=== PATIENT | female | born 1995 | race African-American/Black ===

== ENCOUNTER 2018-01-08 22:56 | Emergency (ER) | payer OTHER ==
[~2018-01-08] VITALS: Ht 167.6 cm; Wt 59.0 kg
[~2018-01-08 22:56] MED LIST: TORADOL10 MG PO
== END 2018-01-09 09:18 | disposition home or self-care (01) ==
LOC: ER 22:56
DX: O20.0 Threatened abortion (principal); Z34.01 Encounter for supervision of normal first pregnancy, first trimester

== ENCOUNTER 2018-04-25 11:37 | Outpatient (CLI) | payer OTHER ==
[2018-04-25] MEDS ORDERED: PRENATAL 19 TA1 EAC1 PO (13:58)
== END 2018-04-26 13:30 | disposition home or self-care (01) ==
LOC: OBS/DEL 11:37
DX: O99.89 Other specified diseases and conditions complicating pregnancy, childbirth and the puerperium (principal); N13.1 Hydronephrosis with ureteral stricture, not elsewhere classified; O47.03 False labor before 37 completed weeks of gestation, third trimester

== ENCOUNTER 2018-06-23 06:47 | Inpatient (IN) | payer OTHER ==
[~2018-06-23] VITALS: Ht 167.6 cm; Wt 73.0 kg
[~2018-06-23 06:47] MED LIST changes: +PRENATAL 19 TA1 EAC1 PO
[2018-06-23] MEDS ORDERED: CEFADROXIL500 MG PO (13:47)
== END 2018-06-25 13:12 | DRG 807 ==
LOC: LDR 06:47 → OB/GYN 06-24 07:36
PROVIDERS: ADMIT Specialist
PROC: 10E0XZZ Delivery of Products of Conception, External Approach (ICD-10-PCS; principal; 2018-06-23)
PROC: 0HQ9XZZ Repair Perineum Skin, External Approach (ICD-10-PCS; 2018-06-23)
PROC: 3E033VJ Introduction of Other Hormone into Peripheral Vein, Percutaneous Approach (ICD-10-PCS; 2018-06-23)
PROC: 4A1HXCZ Monitoring of Products of Conception, Cardiac Rate, External Approach (ICD-10-PCS; 2018-06-23)
DX: O70.0 First degree perineal laceration during delivery (principal); Z37.0 Single live birth; Z3A.38 38 weeks gestation of pregnancy

== ENCOUNTER 2022-09-04 15:57 | Outpatient (CLI) | payer OTHER ==
[~2022-09-04 15:57] MED LIST changes: +CEFADROXIL500 MG PO
== END 2022-09-04 17:28 | disposition left against medical advice (07) ==
LOC: OBS/DEL 15:57
PROVIDERS: ATTEND Specialist
DX: O48.0 Post-term pregnancy (principal); O36.63X0 Maternal care for excessive fetal growth, third trimester, not applicable or unspecified; O24.419 Gestational diabetes mellitus in pregnancy, unspecified control; Z3A.41 41 weeks gestation of pregnancy

== ENCOUNTER → 2023-03-31 | Emergency (ER) | payer OTHER ==
[~2023-03-31] VITALS: Ht 167.6 cm; Wt 70.8 kg
== END | disposition home or self-care (01) ==
LOC: ER 14:39
DX: Z53.21 Procedure and treatment not carried out due to patient leaving prior to being seen by health care provider (principal)